=== PATIENT | male | born 1990 | race African-American/Black ===

== ENCOUNTER 2017-05-27 14:21 | Emergency (ER) | payer OTHER, MEDICAID ==
[~2017-05-27] VITALS: Ht 167.6 cm; Wt 66.0 kg
[2017-05-27] MEDS ORDERED: IBUPROFEN 800MG TABLET PO ONE (15:15)
[2017-05-27] MEDS ORDERED: ACETAMINOPHEN 325MG TABLET PO ONE (20:30)
[2017-05-27] MEDS ORDERED: TRAMADOL 50MG TABLET PO ONE (20:45)
[2017-05-27 22:00] VITALS: BP 127/83
== END 2017-05-27 22:40 | disposition home or self-care (01) ==
LOC: ER 17:58
DX: S39.012A Strain of muscle, fascia and tendon of lower back, initial encounter (principal); F17.200 Nicotine dependence, unspecified, uncomplicated; V49.9XXA Car occupant (driver) (passenger) injured in unspecified traffic accident, initial encounter; Y93.89 Activity, other specified; Y92.89 Other specified places as the place of occurrence of the external cause; Y99.8 Other external cause status
CPT/HCPCS: 71045; 72170; 99284; J7030

== ENCOUNTER 2017-08-31 11:48 | Emergency (ER) | payer OTHER, MEDICAID ==
[~2017-08-31] VITALS: Ht 167.6 cm; Wt 61.0 kg
[2017-08-31] MEDS ORDERED: IBUPROFEN 600MG TABLET PO ONE (12:30)
[2017-08-31 13:37] VITALS: BP 140/83
== END 2017-08-31 14:12 | disposition home or self-care (01) ==
LOC: ER 12:38
DX: S62.231A Other displaced fracture of base of first metacarpal bone, right hand, initial encounter for closed fracture (principal); F17.200 Nicotine dependence, unspecified, uncomplicated; F12.10 Cannabis abuse, uncomplicated; Y04.0XXA Assault by unarmed brawl or fight, initial encounter; Y93.89 Activity, other specified; Y92.89 Other specified places as the place of occurrence of the external cause; Y99.8 Other external cause status
CPT/HCPCS: 29125; 73130; 99284; Z7610

== ENCOUNTER 2023-07-14 21:25 | Emergency (ER) | payer MEDICAID, OTHER ==
[~2023-07-14] VITALS: Ht 167.6 cm; Wt 70.0 kg
[2023-07-14 21:36] VITALS: TEMP 98.7; O2SAT 98
[2023-07-14 22:15] VITALS: BP 155/83; PULSE 105; RESP 12
[2023-07-14] MEDS: KETOROLAC 15MG/ML VIAL IM ONE (22:15)
[2023-07-14] MEDS: CYCLOBENZAPRINE 10MG TABLET PO ONE (22:15)
[2023-07-14] MEDS ORDERED: CYCL5TAB MT (23:45)
[2023-07-14] MEDS ORDERED: LIDO700A15 TP (23:45)
[2023-07-14] MEDS ORDERED: NAPR-1176 MT (23:45)
== END 2023-07-14 23:52 | disposition home or self-care (01) ==
LOC: ER 21:25
DX: M54.2 Cervicalgia (principal); F12.10 Cannabis abuse, uncomplicated
CPT/HCPCS: 99283; 96372; J1885